=== PATIENT | female | born 1950 | race Caucasian/White ===

== ENCOUNTER 2018-02-11 05:35 | Outpatient (CLI) | payer MEDICARE ==
[~2018-02-11] VITALS: Ht 165.1 cm; Wt 77.1 kg
[2018-02-11] MEDS ORDERED: progesterone PO (09:38)
[2018-02-11] MEDS ORDERED: PARO-49 PO (09:38)
[2018-02-11] MEDS ORDERED: ESTR1TAB24 PO (09:38)
== END 2018-02-11 09:42 | disposition home or self-care (01) ==
LOC: PREOP 05:35 → EDBD 05:35 → PREOP 09:42
PROVIDERS: ATTEND Obstetrics & Gynecology
DX: Z01.818 Encounter for other preprocedural examination (principal)

== ENCOUNTER 2018-02-13 11:32 | Day surgery (SDC) | payer MEDICARE, OTHER ==
[~2018-02-13] VITALS: Ht 165.1 cm; Wt 77.1 kg
[~2018-02-13 11:32] MED LIST: ESTR1TAB24 PO; PARO-49 PO; progesterone PO
[2018-02-13 11:35] VITALS: BP 131/67
[2018-02-13] MEDS ORDERED: LACTATED RINGERS 1,000 ML IV PRN (11:44)
[2018-02-13] MEDS ORDERED: ceFAZolin INJECTION 1,000 MG in NS (IVPB) 50 ML IV ONE (11:45)
[2018-02-13 11:50] LABS: BASOPHILS # (AUTO) 0.1 10^3/uL (0.0-0.1); BASOPHILS % (AUTO) 1 % (0-10); EOSINOPHILS # (AUTO) 0.2 10^3/uL (0.0-0.3); EOSINOPHILS % (AUTO) 4 % (0-10); HEMATOCRIT 38 % (35-52); HEMOGLOBIN 12.6 G/DL (11.5-16.0); LYMPHOCYTES # (AUTO) 2.3 X 10^3 (1.0-4.0); LYMPHOCYTES % (AUTO) 44 % (12-44); MEAN CORPUSCULAR HEMOGLOBIN 30 PG (25-34); MEAN CORPUSCULAR HGB CONC 33 G/DL (32-36); MEAN CORPUSCULAR VOLUME 91 FL (80-99); MEAN PLATELET VOLUME 10.2 FL (7.4-10.4); MONOCYTES # (AUTO) 0.4 X 10^3 (0.0-1.0); MONOCYTES % (AUTO) 8 % (0-12); NEUTROPHILS # (AUTO) 2.3 X 10^3 (1.8-7.8); NEUTROPHILS % (AUTO) 43 % (42-75); PLATELET COUNT 231 10^3/uL (130-400); RED BLOOD COUNT 4.17 10^6/uL (4.35-5.85); RED CELL DISTRIBUTION WIDTH 12.8 % (10.0-14.5); WHITE BLOOD COUNT 5.3 10^3/uL (4.3-11.0)
[2018-02-13] MEDS ORDERED: fentaNYL INJECTION 100 MCG/2 ML AMP ONE (12:50)
[2018-02-13] MEDS ORDERED: MIDAZOLAM 2 MG/2 ML (VERSED) VIAL ONE (12:51)
--- NOTE | 2018-02-13 13:48 | Progress Note-Pre Operative ---
Pre-Operative Progress Note H&P Reviewed The H&P was reviewed, patient examined and no changes noted. Date Seen by Provider: Feb 13, 2018 Time Seen by Provider: 13:48 Date H&P Reviewed: Feb 13, 2018 Time H&P Reviewed: 13:48 Pre-Operative Diagnosis: Postmenopausal bleeding/intrauterine mass HALIMA SAMPSON MD Feb 13, 2018 1:48 pm
[2018-02-13] MEDS ORDERED: D5 LR IV SOLUTION 1,000 ML IV SCH (13:49)
--- NOTE | 2018-02-13 13:49 | Progress Note-Post Operative ---
Post-Operative Progess Note Surgeon (s)/Swimming Pool Installer (s) Surgeon HALIMA SAMPSON MD Swimming Pool Installer: No 1 Pre-Operative Diagnosis Postmenopausal bleeding/intrauterine mass Post-Operative Diagnosis SAME with pathology pending Procedure & Operative Findings Date of Procedure 02/13/18 Procedure Performed/Findings Hysteroscopy with directed biopsy and D&C Anesthesia Type GETA Estimated Blood Loss Estimated blood loss (mL): Minimal Specimens/Packing Specimens Removed Intrauterine mass and endometrial curettings Packing: None required HALIMA SAMPSON MD Feb 13, 2018 1:49 pm
[2018-02-13] MEDS ORDERED: OXYC1TAB87 PO (13:52)
--- NOTE | 2018-02-13 13:53 | Discharge Instructions ---
Discharge Instructions Discharge Medications New, Converted or Re-Newed RX: RX on Chart Patient Instructions Patient Instructions: As directed Return to The Hospital For: As directed Activity & Diet Discharge Diet: No Restrictions Activity as Tolerated: No Orders-Post D/C & Referrals Follow Up Appt: Call to make follow up appt. for patient in 2 weeks. Activity: Rest for 24 hours, than as tolerated. Diet: As tolerated-Clear Liquids only if nauseated. may shower or tub bathe as desired. No driving for 24 hours, no alcoholic beverages for 24 hours, and nothing per vagina (no tampons, douching, or intercourse) for 2 weeks. Patient to return to the clinic as soon as possible for: Temperature greater than 101F, Severe Pain, Foul discharge from incision or vagina, Excessive Bleeding (more than a period). HALIMA SAMPSON MD Feb 13, 2018 1:53 pm
[2018-02-13] MEDS ORDERED: oxyCODONE/APAP 5/325MG (PERCOCET 5) TABLET PO PRN (14:00)
[2018-02-13] MEDS ORDERED: PROMETHAZINE INJ 25 MG/ML (PHENERGAN) AMP IM ONE (14:00)
[2018-02-13] MEDS ORDERED: ONDANSETRON 4 MG/2 ML (SDV) Z0FRAN IVP PRN (14:00)
[2018-02-13] MEDS ORDERED: MEPERIDINE (DEMEROL) INJ 100 MG/ML IM ONE (14:00)
[2018-02-13] MEDS ORDERED: KETOROLAC 30 MG/ML VIAL IVP ONE (14:00)
[2018-02-13] MEDS ORDERED: LIDOCAINE PF 2% 2 ML (XYLOCAINE) VIAL ONE (14:10)
[2018-02-13] MEDS ORDERED: SEVOFLURANE (ULTANE) 15 ML INHAL SOLN ONE (14:10)
[2018-02-13] MEDS ORDERED: proPOfol 200 MG/20 ML (DIPRIVAN) VIAL IV ONE (14:10)
[2018-02-13] MEDS ORDERED: DEXAMETHASONE 10 MG/ML (DECADRON) 1 ML VIAL ONE (14:11)
[2018-02-13] MEDS ORDERED: ONDANSETRON 4 MG/2 ML (SDV) Z0FRAN ONE (14:11)
[2018-02-13] MEDS ORDERED: KETOROLAC 30 MG/ML VIAL ONE (14:28)
[2018-02-13] MEDS ORDERED: morphine INJ 10 MG/ML 1ML (SYR OR VIAL) IVP ONE (14:45)
--- NOTE | 2018-02-13 14:47 | Anesthesia-General Post-Op ---
General Patient Condition Mental Status/LOC: Same as Preop Cardiovascular: Satisfactory Nausea/Vomiting: Absent Respiratory: Satisfactory Pain: Controlled Complications: Absent Post Op Complications Complications None Follow Up Care/Instructions Patient Instructions None needed. Anesthesia/Patient Condition Patient Condition Patient is doing well, no complaints, stable vital signs, no apparent adverse anesthesia problems. No complications reported per nursing. TARAH OSEI CRNA Feb 13, 2018 14:47
[2018-02-13 15:25] VITALS: BP 134/66
[2018-02-13 16:00] VITALS: BP 136/64
--- NOTE | 2018-02-13 16:04 | OPERATIVE REPORT ---
DATE OF SERVICE: 02/13/2018 PREOPERATIVE DIAGNOSIS: Postmenopausal bleeding and intrauterine mass. POSTOPERATIVE DIAGNOSIS: Postmenopausal bleeding and intrauterine mass with pathology pending. OPERATIVE PROCEDURE: Hysteroscopy with directed biopsy and D and C. OPERATIVE DESCRIPTION: With the patient in the supine position under satisfactory general anesthesia, she repositioned in dorsal lithotomy position in the [facility]ru and then prepped and draped in usual fashion for vaginal surgery. Urinary bladder was drained with a straight catheter. A weighted speculum placed in the posterior fornix of vagina, cervix exposed and grasped anteriorly with a single tooth tenaculum. The uterus was sounded to 9 cm with uterine sound. The cervix was then serially dilated with Singh dilators to #20 Singh and then a #9 Hegar dilator was the final step in dilation. The hysteroscope was introduced, and using LR as a distending medium, the endometrial cavity was examined. There was an exophytic lesion emanating from the right anterior lateral surface of the uterine wall. This was biopsied off and sent to pathology in several fragments combined. The endometrial cavity was then sharply curettaged in all 4 quadrants to good uterine cry removing only a small amount of additional tissue. The endometrial cavity was examined a final time with the hysteroscope with no abnormal remaining pathology and no significant bleeding. The procedure was terminated. The operative instruments were removed as was the tenaculum. There was no bleeding from the tenaculum puncture sites. There was no bleeding from the cervical os. Sponge and needle counts were correct on completion of procedure. Estimated blood loss was minimal. The patient tolerated the procedure well and was uneventfully awakened from her general anesthesia and transferred to the recovery room in stable condition with plans for discharge home PAR. Job ID: [id number] DocumentID: [id number] Dictated Date: 02/13/2018 14:25:22 Chemical Technician Date: 02/13/2018 16:03:56 Dictated By: HALIMA SAMPSON MD
[2018-02-13 16:57] VITALS: BP 120/62
[2018-02-13 17:38] VITALS: BP 120/62
== END 2018-02-13 17:38 | disposition home or self-care (01) ==
LOC: EDBD → SDC 11:32
PROVIDERS: ATTEND Obstetrics & Gynecology
DX: N80.0 Endometriosis of uterus (principal); N95.0 Postmenopausal bleeding; Z11.2 Encounter for screening for other bacterial diseases; F32.9 Major depressive disorder, single episode, unspecified; G47.33 Obstructive sleep apnea (adult) (pediatric); Z79.899 Other long term (current) drug therapy; Z98.84 Bariatric surgery status
CPT/HCPCS: 36415; 85025; 87081

== ENCOUNTER → 2019-07-08 | Outpatient (CLI) | payer MEDICARE, OTHER ==
[~2019-07-08] MED LIST changes: +OXYC1TAB87 PO
[2019-07-08 16:03] LABS: FREE T4 (FREE THYROXINE) 1.04 NG/DL (0.70-1.48)
== END ==
LOC: LAB FS 12:47
PROVIDERS: ATTEND Family Medicine
DX: E03.9 Hypothyroidism, unspecified (principal)
CPT/HCPCS: 36415; 84439; 84443

== ENCOUNTER → 2019-11-10 | Outpatient (CLI) | payer MEDICARE, OTHER ==
[2019-11-10 11:56] LABS: BILIRUBIN,TOTAL 0.5 MG/DL (0.1-1.0); BUN/CREATININE RATIO 13; CALCIUM 8.3 MG/DL (8.5-10.1); CARBON DIOXIDE 26 MMOL/L (21-32); CHLORIDE 102 MMOL/L (98-107); CREATININE SERUM 0.91 MG/DL (0.60-1.30); GFR ESTIMATED > 60; GLUCOSE 93 MG/DL (70-105); SODIUM 139 MMOL/L (135-145)
[2019-11-10 11:57] LABS: ALANINE AMINOTRANSFERASE 10 U/L (0-55); ALBUMIN 3.5 GM/DL (3.2-4.5); ALKALINE PHOSPHATASE 46 U/L (40-136); TOTAL PROTEIN 6.1 GM/DL (6.4-8.2)
[2019-11-10 15:02] LABS: CHOLESTEROL 225 MG/DL (< 200); HDL CHOLESTEROL 39 MG/DL (40-60); TRIGLYCERIDES 258 MG/DL (<150); VLDL CHOLESTEROL 52 MG/DL (5-40)
[2019-11-10 15:24] LABS: FREE T4 (FREE THYROXINE) 0.95 NG/DL (0.70-1.48)
== END ==
LOC: LAB FS 10:16
PROVIDERS: ATTEND Family Medicine
DX: Z00.00 Encounter for general adult medical examination without abnormal findings (principal); E03.9 Hypothyroidism, unspecified; E78.5 Hyperlipidemia, unspecified
CPT/HCPCS: 36415; 80053; 80061; 84439; 84443

== ENCOUNTER → 2020-06-28 | Outpatient (CLI) | payer MEDICARE, OTHER ==
[2020-06-28 16:04] LABS: BACTERIA,URINE NEGATIVE /HPF; BILIRUBIN,URINE NEGATIVE (NEGATIVE); CLARITY,URINE CLEAR; COLOR,URINE YELLOW; GLUCOSE, URINE (UA) NEGATIVE (NEGATIVE); KETONES,URINE NEGATIVE (NEGATIVE); LEUKOCYTE ESTERASE ,URINE NEGATIVE (NEGATIVE); NITRITE,URINE NEGATIVE (NEGATIVE); PH,URINE 6.5 (5-9); PROTEIN,URINE NEGATIVE (NEGATIVE); SQUAMOUS EPITHELIAL CELL,UR 0-2 /HPF
== END ==
LOC: LAB FS 15:14
PROVIDERS: ATTEND Family Medicine
DX: R31.29 Other microscopic hematuria (principal)
CPT/HCPCS: 81000

== ENCOUNTER → 2020-11-11 | Outpatient (CLI) | payer MEDICARE, OTHER ==
[2020-11-11 16:33] LABS: ALBUMIN 3.7 GM/DL (3.2-4.5); BILIRUBIN,TOTAL 0.5 MG/DL (0.1-1.0); CALCIUM 8.6 MG/DL (8.5-10.1); CREATININE SERUM 1.06 MG/DL (0.60-1.30); TOTAL PROTEIN 6.2 GM/DL (6.4-8.2)
== END ==
LOC: LAB FS 11:00
PROVIDERS: ATTEND Family Medicine
DX: E03.9 Hypothyroidism, unspecified (principal); I10 Essential (primary) hypertension
CPT/HCPCS: 36415; 80053; 80061; 84443

== ENCOUNTER 2020-12-29 05:33 | Outpatient (CLI) | payer MEDICARE, OTHER ==
[~2020-12-29] VITALS: Ht 165.1 cm; Wt 88.5 kg
[2020-12-29] MEDS ORDERED: MULT-1136 PO (14:59)
[2020-12-29] MEDS ORDERED: VITA1CAP PO (14:59)
[2020-12-29] MEDS ORDERED: ASPI-999 PO (14:59)
[2020-12-29] MEDS ORDERED: ERGO400C PO (14:59)
[2020-12-29] MEDS ORDERED: LEVO50TA6 PO (14:59)
[2020-12-29] MEDS ORDERED: OMEG1CAP58 PO (14:59)
[2020-12-29] MEDS ORDERED: OMG1KC PO (14:59)
== END 2021-01-03 12:47 | disposition home or self-care (01) ==
LOC: PREOP 05:33
PROVIDERS: ATTEND Surgery
DX: Z01.818 Encounter for other preprocedural examination (principal)

== ENCOUNTER 2021-01-05 09:59 | Day surgery (SDC) | payer MEDICARE, OTHER ==
[~2021-01-05] VITALS: Ht 165.1 cm; Wt 88.5 kg
[~2021-01-05 09:59] MED LIST changes: +ASPI-999 PO; +ERGO400C PO; +LEVO50TA6 PO; +MULT-1136 PO; +OMEG1CAP58 PO; +OMG1KC PO; +VITA1CAP PO
[2021-01-05] MEDS ORDERED: LACTATED RINGERS 1,000 ML IV STA (10:00)
[2021-01-05] MEDS ORDERED: LIDOCAINE JELLY 2% 6 ML SYRINGE MM PRN (10:00)
[2021-01-05] MEDS ORDERED: LACTATED RINGERS 1,000 ML IV ONE (10:03)
[2021-01-05 10:19] VITALS: BP 129/60
--- NOTE | 2021-01-05 10:24 | Progress Note-Pre Operative ---
Pre-Operative Progress Note H&P Reviewed The H&P was reviewed, patient examined and no changes noted. Date Seen by Provider: Jan 05, 2021 Time Seen by Provider: 10:00 Date H&P Reviewed: Jan 05, 2021 Time H&P Reviewed: 10:00 Pre-Operative Diagnosis: screening/family hx HUI BRISENO MD Jan 05, 2021 10:24
--- NOTE | 2021-01-05 10:25 | Discharge Inst-Surgical ---
D/C Lap Instructions-FINN Follow Up Activity as tolerated High Fiber Diet 25g or more per day Avoid Alcohol, Caffeine, Spicy [place] and Acid foods. Drink 64 fluid oz or more of fluids per day. Symptoms to Report: Fever over 101 degree F, Nausea/Vomiting If any problems/questions: Contact your physician or go to Emergency Room HUI BRISENO MD Jan 05, 2021 10:25
[2021-01-05] MEDS ORDERED: ONDANSETRON 4 MG/2 ML (SDV) Z0FRAN IVP PRN (10:30)
[2021-01-05] MEDS ORDERED: ONDANSETRON 4 MG (ZOFRAN) ORAL DISSOLVE TAB PO PRN (10:30)
[2021-01-05] MEDS ORDERED: MIDAZOLAM 2 MG/2 ML (VERSED) VIAL ONE (12:11)
[2021-01-05 12:45] VITALS: BP 107/52
[2021-01-05 12:50] VITALS: BP 110/62
[2021-01-05 12:55] VITALS: BP 110/62
--- NOTE | 2021-01-05 12:57 | Progress Note-Post Operative ---
Post-Operative Progess Note Surgeon (s)/Field Research Associate (s) Surgeon HUI BRISENO MD Field Research Associate: none Pre-Operative Diagnosis screening/family hx Post-Operative Diagnosis mild chronic stage 2 ext and int hemorrhoids, moderate sigmoid diverticulosis. Procedure & Operative Findings Date of Procedure 01/05/21 Procedure Performed/Findings colonoscopy Anesthesia Type mac Estimated Blood Loss Estimated blood loss (mL): minimal Specimens/Packing Specimens Removed none HUI BRISENO MD Jan 05, 2021 12:57
[2021-01-05 13:20] VITALS: BP 115/68
[2021-01-05] MEDS ORDERED: proPOfol 500 MG/50 ML (DIPRIVAN) VIAL IV ONE (14:43)
--- NOTE | 2021-01-05 20:09 | OPERATIVE REPORT ---
DATE OF SERVICE: 01/05/2021 ATTENDING PRIMARY CARE PHYSICIAN: Dr. Chandrika Bright. PREOPERATIVE DIAGNOSIS: Screening colonoscopy. POSTOPERATIVE DIAGNOSES: Mild chronic stage II external and internal hemorrhoids, moderate sigmoid diverticulosis. PROCEDURE PERFORMED: Colonoscopy. SURGEON: Hui Briseno MD. ANESTHESIA: Monitored anesthesia care. ESTIMATED BLOOD LOSS: Minimal. FINDINGS: Mild chronic stage II external and internal hemorrhoids, moderate sigmoid diverticulosis. DISPOSITION: The patient tolerated the procedure well. INDICATIONS FOR PROCEDURE: The patient is a 70-year-old female referred over to us for a screening colonoscopy. She states that for the most part she is doing well. She does not report any major issues with diarrhea nor constipation as well as no red blood per rectum nor any dark tarry stools. Her mother did have a history of colon cancer. DESCRIPTION OF PROCEDURE: The patient was brought to the endoscopy suite and laid in a left lateral decubitus position. After adequate IV pain and sedative medications and monitored anesthesia care, a digital rectal examination was performed. Mild chronic stage II external and internal hemorrhoids were identified, which were not actively edematous nor inflamed and no bleeding. Normal sphincter tone was felt and there were no palpable masses. The endoscope was then intubated to the anus and rectum gently insufflated. The endoscope was then advanced through the valves of Garcias of the rectum with no polyps or any neoplasms identified. Through the sigmoid colon, a moderate sigmoid diverticulosis identified. There were no mucosal inflammatory changes to indicate any active diverticulitis. The endoscope was then advanced to the remainder of the descending, transverse and ascending colon to the cecum. These segments were normal. There were no polyps or any neoplasms identified throughout the colon or rectum. The endoscope was then slowly withdrawn while taking a second look and suctioning of residual air with no additional findings. The patient tolerated the procedure well. We will recommend incorporation of a high fiber diet with the fiber supplementation, which should equal or exceed 25 grams daily with the endpoint being soft stools on a daily basis. This should prevent further propagation or complications related to diverticulosis and diverticulitis. Because of her first-degree family history of colon cancer, we will recommend a followup colonoscopy in approximately five years. Job ID: [id number] DocumentID: [id number] Dictated Date: 01/05/2021 12:50:33 Inspection Manager Date: 01/05/2021 20:08:16 Dictated By: HUI BRISENO MD
== END 2021-01-05 13:30 | disposition home or self-care (01) ==
LOC: ENDO 09:59
PROVIDERS: ATTEND Surgery
DX: Z12.11 Encounter for screening for malignant neoplasm of colon (principal); K64.1 Second degree hemorrhoids; K57.30 Diverticulosis of large intestine without perforation or abscess without bleeding; I10 Essential (primary) hypertension; G47.33 Obstructive sleep apnea (adult) (pediatric); F32.9 Major depressive disorder, single episode, unspecified; E03.9 Hypothyroidism, unspecified; Z79.899 Other long term (current) drug therapy; Z79.890 Hormone replacement therapy

== ENCOUNTER → 2021-01-20 | Outpatient (CLI) | payer MEDICARE, OTHER ==
--- NOTE | 2021-01-20 11:57 | Diagnostic Imaging Report ---
Indication: Chest discomfort. TIME OF EXAM: 11:29 AM No prior studies are available for comparison. The heart size is normal. The pulmonary vascularity is unremarkable. The lungs are clear. No infiltrate, effusion or pneumothorax is detected. Impression: No acute cardiopulmonary process is detected. Dictated by: Dictated on workstation # [id number]
== END ==
LOC: RAD 10:54
PROVIDERS: ATTEND Family Medicine
DX: R07.89 Other chest pain (principal); E03.9 Hypothyroidism, unspecified
CPT/HCPCS: 36415; 71046; 84443

== ENCOUNTER → 2021-02-17 | Outpatient (CLI) | payer MEDICARE, OTHER ==
[~2021-02-17] VITALS: Ht 165 cm; Wt 89.0 kg
[~2021-02-17] MED LIST changes: +CATHETER FLUSH 10 ML SYR IV PRN; +REGADENOSON 0.4 MG/5 ML SYR (LEXISCAN) IV ONE
[2021-02-17 08:48] VITALS: BP 143/69
--- NOTE | 2021-02-17 18:26 | NUCLEAR STRESS TEST ---
TREADMILL NUCLEAR STRESS TEST Date of procedure: 02/17/2021. Primary care provider: Chandrika Bright MD. Admitting physician: Wilfred Bergeron Jr., MD. INDICATION: Abnormal electrocardiogram. BASELINE ELECTROCARDIOGRAM: Sinus bradycardia 55 bpm with first-degree AV block. STRESS TEST PROCEDURE: The patient was exercised for a total of 6 minutes and 0 seconds of the standard Oracio protocol achieving a maximum MET level of 7.3. The resting heart rate was 55 bpm and the peak heart rate was 139 bpm, which represents 91% of the maximum predicted heart rate. The resting blood pressure was 143/69 mmHg and the peak blood pressure was 199/84 mmHg. This represents a normal heart rate and a normal blood pressure response to exercise. The test was stopped due to fatigue. There was no chest discomfort during the test. There were no arrhythmias during the test. There were borderline stress induced electrocardiogram changes with approximately [address] depression in the inferolateral leads that improved in recovery. The patient exhibited good exercise capacity for age. NUCLEAR PROCEDURE: The patient was administered 11 mCi of intravenous technetium 99m Tetrofosmin at rest for the rest images. The patient was subsequently administered 33 mCi of intravenous technetium 99 M Tetrofosmin at peak stress for the stress images. Following an appropriate wait after each injection, imaging was obtained. The images were subsequently processed and reformatted in the usual views. Gated imaging was obtained. The image quality was adequate but with some degree of gastrointestinal attenuation artifact. CT attenuation correction was used as a adjunct to standard imaging. Both the corrected and uncorrected images were reviewed for interpretation. NUCLEAR RESULTS: There was normal myocardial perfusion in all segments without evidence of infarction or ischemia. There was normal left ventricular chamber size with an end-diastolic volume of 45 mL and an end-systolic volume of 11 mL. There was no evidence of transient ischemic dilatation. The TID ratio was 0.96. There was normal wall motion in all segments with a calculated ejection fraction of 76%. IMPRESSION: 1. Normal heart rate and blood pressure response to exercise. 2. There was no exercise-induced chest discomfort or arrhythmias. 3. There were borderline exercise-induced electrocardiogram changes that resolved in recovery. 4. The patient exhibited good exercise capacity for age at 6 minutes of the Oracio protocol. 5. There was normal myocardial perfusion in all segments without evidence of infarction or ischemia. 6. There was normal wall motion in all segments with a calculated ejection fraction of 76%. Certain portions of this document may have been dictated utilizing voice recognition technology. Inherent to this technology, typographical and grammatical errors may exist. As much as I am diligent to identify and correct these mistakes, some errors may remain in the document. WILFRED BERGERON JR, MD Feb 17, 2021 18:26
== END ==
LOC: CARD 08:30
PROVIDERS: ATTEND Internal Medicine Cardiovascular Disease
DX: R94.31 Abnormal electrocardiogram [ECG] [EKG] (principal)
CPT/HCPCS: 78452; 93017; A9502

== ENCOUNTER → 2021-02-18 | Outpatient (CLI) | payer MEDICARE, OTHER ==
[~2021-02-18] MED LIST changes: -CATHETER FLUSH 10 ML SYR IV PRN; -REGADENOSON 0.4 MG/5 ML SYR (LEXISCAN) IV ONE
== END ==
LOC: CARD 10:30
PROVIDERS: ATTEND Internal Medicine Cardiovascular Disease
DX: I08.0 Rheumatic disorders of both mitral and aortic valves (principal)
CPT/HCPCS: 93306

== ENCOUNTER → 2022-01-23 | Outpatient (CLI) | payer MEDICARE, OTHER ==
[2022-01-23 11:58] LABS: BILIRUBIN,TOTAL 0.5 MG/DL (0.1-1.0); CALCIUM 8.7 MG/DL (8.5-10.1); CREATININE SERUM 0.95 MG/DL (0.60-1.30); POTASSIUM 3.9 MMOL/L (3.6-5.0)
[2022-01-23 11:59] LABS: ALBUMIN 3.9 GM/DL (3.2-4.5); TOTAL PROTEIN 6.4 GM/DL (6.4-8.2)
== END ==
LOC: LAB FS 10:50
PROVIDERS: ATTEND Family Medicine
DX: E03.9 Hypothyroidism, unspecified (principal); M54.2 Cervicalgia; E78.5 Hyperlipidemia, unspecified; G25.0 Essential tremor; Z76.0 Encounter for issue of repeat prescription; M76.61 Achilles tendinitis, right leg
CPT/HCPCS: 36415; 80053; 80061; 84443